=== PATIENT | male | born 1970 | race Caucasian/White ===

== ENCOUNTER 2018-01-01 12:58 | Inpatient (IN) | payer MEDICARE, MEDICAID ==
[~2018-01-01] VITALS: Ht 177.8 cm; Wt 65.3 kg
[2018-01-01] MEDS ORDERED: POLY17PO4 PO (13:14)
[2018-01-01] MEDS ORDERED: MEGE40TA PO (13:14)
[2018-01-01] MEDS ORDERED: TRAZ-182 PO (13:14)
[2018-01-01] MEDS ORDERED: ACET325C5 PO (13:14)
[2018-01-01] MEDS ORDERED: MAGN400O6 PO (13:14)
[2018-01-01] MEDS ORDERED: DOCU-141 PO (13:14)
[2018-01-01] MEDS ORDERED: LEVO1CAP PO (13:14)
[2018-01-01] MEDS ORDERED: DIATR MEGLU/DIATRIZOATE SODIUM 120 ML BOTTLE ONE ×2 (13:27→13:42)
[2018-01-01] MEDS ORDERED: DIATR MEGLU/DIATRIZOATE SODIUM 120 ML BOTTLE PO ONE (13:30)
--- NOTE | 2018-01-01 13:42 | NUR ---
1317- Rubber Compounder Supervisor assumes care. G tube was inserted by Dr Dean, pending x-ray for confirmation
--- NOTE | 2018-01-01 13:53 | NUR ---
ABDOMEN XRAY GASTROGRAFIN STUDY TO CHECK G-TUBE PLACEMENT GASTROGRAFIN 120ML X2 SCARIFIER OPERATOR XRAY ACQUIRED 30ML INJECTED @13:28 WHILE LEAVING REQUESTED ADDITIONAL 60ML 60ML INJECTED @13:42
[2018-01-01] MEDS ORDERED: IV NORMAL SALINE 1000 ML BAG IV ONE (14:15)
[2018-01-01] MEDS ORDERED: ONDANSETRON 4 MG/2 ML VIAL IV PRN (14:30)
[2018-01-01] MEDS ORDERED: Z GUARD REMEDY PASTE 57 GM TUBE TOP PRN (14:30)
[2018-01-01] MEDS ORDERED: ACETAMINOPHEN 325 MG TABLET PO PRN (14:30)
[2018-01-01] MEDS ORDERED: HYDROCODONE/APAP 5-325MG TABLET PO PRN (14:30)
[2018-01-01] MEDS ORDERED: MAGNESIUM HYDROXIDE 30 ML LIQUID UDC PO PRN (14:30)
[2018-01-01 14:33] LABS: BASOPHILS % (AUTO) 0.2 % (0.0-2.0); EOSINOPHILS # (AUTO) 0.2 K/uL (0.0-0.7); EOSINOPHILS % (AUTO) 1.3 % (0.0-7.0); HEMATOCRIT 43.3 % (36.7-47.1); HEMOGLOBIN 14.3 g/dL (12.5-16.3); LYMPHOCYTES # (AUTO) 1.3 K/uL (20.0-40.0); LYMPHOCYTES % (AUTO) 10.5 % (20.5-51.5); MEAN CORPUSCULAR HEMOGLOBIN 29.3 uug (23.8-33.4); MEAN CORPUSCULAR HGB CONC 33 g/dL (32.5-36.3); MEAN CORPUSCULAR VOLUME 88.9 fL (73.0-96.2); MONOCYTES # (AUTO) 0.5 K/uL (2.0-10.0); MONOCYTES % (AUTO) 4.1 % (0.0-11.0); NEUTROPHILS # (AUTO) 10.1 K/uL (1.8-8.9); NEUTROPHILS % (AUTO) 83.9 % (38.5-71.5); PLATELET COUNT (AUTO) 153 K/uL (152-348); RED BLOOD CELL COUNT(AUTO) 4.87 MIL/uL (4.06-5.63); WHITE BLOOD COUNT (AUTO) 12.1 K/uL (3.6-10.2)
[2018-01-01 14:41] LABS: CREATININE 0.8 mg/dL (0.6-1.3)
[2018-01-01 14:46] LABS: BILIRUBIN,DIRECT 0.1 mg/dL (0.0-0.2); BILIRUBIN,TOTAL 0.5 mg/dL (0.2-1.0); TOTAL PROTEIN, SERUM 7.7 g/dL (6.4-8.2)
--- NOTE | 2018-01-01 14:48 | NUR ---
RECEIVED PATIENT FROM ER VIA [facility], ADMITTED TO ROOM 219. IN STABLE CONDITION WITH IV ACCESS ON THE LEFT AC # 18 INTACT AND PATENT. PATIENT IS AWAKE, APHASIC, AAOX1. ADMISSION ORDERS NOTED AND CARRIED OUT. NURSING ADMISSION ASSESSMENTS TO BE COMPLETED. COMFORT MEASURES PROVIDED.
[2018-01-01 15:07] VITALS: BP 100/63
--- NOTE | 2018-01-01 16:14 | NUR ---
WAS ABLE TO OBTAIN SOME HISTORY FROM [facility] BUT CALLED AND LEFT MESSAGE FOR CONSERVATOR AASHISH GIGI [phone], TO OBTAIN MORE INFORMATION AND COPIES OF ADVANCED DIRECTIVES.
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
--- NOTE | 2018-01-01 17:06 | NUR ---
CALLED [facility], SPOKE TO LAM, ASKED IF THEY COULD FAX OVER CONSERVATORSHIP PAPER WORK.
[2018-01-01] MEDS: IV D5 1/2 NS 1000 ML 1,000 ML IV PRN (17:58)
--- NOTE | 2018-01-01 18:42 | NUR ---
Patient in bed, asleep. in stable condition. IVF infusing well on the left AC # 18. Patient kept clean and comfortable. All needs attended and anticipated. Will continue to monitor closely. wILL ENDORSE TO NEXT SHIFT ACCORDINGLY
--- NOTE | 2018-01-01 19:20 | NUR ---
RECEIVED PT LYING IN BED. AWAKE, BUT NON-VERBAL, ABLE TO MAKE BRIEF EYE CONTACT WHEN SPOKEN TO. IN NO ACUTE DISTRESS. IV SITE ON LEFT AC INTACT AND PATENT. IVF INFUSING. SAFETY MEASURE INITIATED.
[2018-01-01 20:29] VITALS: BP 132/50
--- NOTE | 2018-01-02 01:10 | NUR ---
PT IV KEEPS ON GETTING OCCLUDED PT BENDS HIS ELBOW MOST OF THE TIME. STARTED NEW IV SITE ON LEFT HAND #[address] IV FLUIDS TO RUN ON IV SITE ON LEFT HAND.
[2018-01-02 04:36] VITALS: BP 124/72
[2018-01-02] MEDS: IV D5 1/2 NS 1000 ML 1,000 ML IV PRN ×2 (06:03→21:58)
--- NOTE | 2018-01-02 06:05 | NUR ---
PATIENT ALERT BUT NON-VERBAL, ABLE TO MAKE BRIEF EYE CONTACT WHEN SPOKEN TO. IN NO ACUTE DISTRESS. NO S/SX OF PAIN OR DISCOMFORT NOTED. VS WNL. IV SITE ON LEFT AC AND LEFT HAND REMAINS INTACT AND PATENT. IVF INFUSING. SAFETY MEASURE MAINTAINED CALL ALVAREZ WITHIN REACH.
[2018-01-02 07:25] LABS: BASOPHILS % (AUTO) 0.1 % (0.0-2.0); CREATININE 0.9 mg/dL (0.6-1.3); EOSINOPHILS # (AUTO) 0.1 K/uL (0.0-0.7); EOSINOPHILS % (AUTO) 0.7 % (0.0-7.0); HEMATOCRIT 40.4 % (36.7-47.1); HEMOGLOBIN 13.6 g/dL (12.5-16.3); LYMPHOCYTES # (AUTO) 1.4 K/uL (20.0-40.0); LYMPHOCYTES % (AUTO) 12.9 % (20.5-51.5); MAGNESIUM 2.3 mg/dL (1.8-2.4); MEAN CORPUSCULAR HGB CONC 34 g/dL (32.5-36.3); MEAN CORPUSCULAR VOLUME 88.8 fL (73.0-96.2); MONOCYTES # (AUTO) 0.8 K/uL (2.0-10.0); MONOCYTES % (AUTO) 7.6 % (0.0-11.0); NEUTROPHILS # (AUTO) 8.3 K/uL (1.8-8.9); NEUTROPHILS % (AUTO) 78.7 % (38.5-71.5); PHOSPHOROUS 4.1 mg/dL (2.5-4.9); PLATELET COUNT (AUTO) 174 K/uL (152-348); POTASSIUM 3.6 mmol/L (3.5-5.1); RED BLOOD CELL COUNT(AUTO) 4.55 MIL/uL (4.06-5.63); WHITE BLOOD COUNT (AUTO) 10.6 K/uL (3.6-10.2)
[2018-01-02 11:25] VITALS: BP 119/78
--- NOTE | 2018-01-02 12:31 | NUR ---
Consent received from pt's LPS/conservator AASHISH TADEO [phone] and with EGD with PEG. Pt kept NPO since admission. Call light is within reach.
[2018-01-02] MEDS ORDERED: PROPOFOL 200 MG/20 ML BOTTLE IV ONE (13:31)
[2018-01-02] MEDS ORDERED: LIDOCAINE HCL 1% 20 ML VIAL MC ONE (13:31)
[2018-01-02] MEDS ORDERED: IV NORMAL SALINE 1000 ML BAG IV ONE (13:31)
[2018-01-02] MEDS ORDERED: IV LACTATED RINGERS SOLUTION 1,000 ML BAG IV ONE (13:33)
[2018-01-02] MEDS ORDERED: CLINDAMYCIN PHOSPHATE 600 MG/4 ML VIAL ONE (13:53)
[2018-01-02] MEDS ORDERED: ALBUTEROL SULFATE 2.5 MG/3 ML NEBU ONE (14:37)
--- NOTE | 2018-01-02 16:00 | NUR ---
Pt received back from PACU. 02 [facility] with sat of 97%. Call light is within reach.
[2018-01-02 16:06] VITALS: BP 127/97
--- NOTE | 2018-01-02 17:50 | NUR ---
Pt is in no acute distress. Call light is within reach. Pt's g-tube no bleeding noted. Abdominal binder in placed to prevent pt from pulling g-tube. Pt has been cooperative.
--- NOTE | 2018-01-02 20:25 | NUR ---
Received patient lying in bed comfortably. Patient is following simple commands and requests. Abdominal binder in place. IV site patent and infusing well. No respiratory distress noted. Bed in lowest position with 2/4 siderais up for safet Addendum: 01/02/18 at 2030 by NIRMAL WHITEHEAD RN Received patient lying in bed comfortably. Patient is following simple commands and requests. Abdominal binder in place. IV site patent and infusing well. No respiratory distress noted. Bed in lowest position with 2/4 siderais up for safety. Call light within reach. Bed alarm active. Will continue to monitor.
--- NOTE | 2018-01-03 04:14 | NUR ---
G-Tube Feeding started as ordered. Started feeding rate at 20cc/hr. Will endorse to oncoming nurse to advance 10cc/hr q6 hours as tolerated until goal of 65cc/hr is met per MD order. Will continue to monitor closely
[2018-01-03] MEDS: JEVITY 1.2 1000 ML LIQUID GT PRN (04:21)
[2018-01-03 05:00] VITALS: BP 107/76
[2018-01-03] MEDS: PANTOPRAZOLE SODIUM 40 MG VIAL IV SCH (07:33)
[2018-01-03 08:00] VITALS: BP 125/88
--- NOTE | 2018-01-03 08:00 | NUR ---
Pt suction white foamy sputum. 02 tapered to 2 lit/min via nasal canula. Pt more comfortable after suctioning and oral care done. HOB elevated prevent aspiration. G-tube audible on stomach. G tube feeding infusing at 20cc/hr no residual. Dressing changed on G-tube site no redness. Bed alarm on. Call light is within reach.
[2018-01-03 12:09] VITALS: BP 118/74
[2018-01-03] MEDS: IV D5 1/2 NS 1000 ML 1,000 ML IV PRN (13:06)
[2018-01-03 15:59] VITALS: BP 120/60
--- NOTE | 2018-01-03 18:19 | NUR ---
Pt was suctioned throughout the day. Pt is in no acute distress. Call light is within reach.
[2018-01-03 20:00] VITALS: BP 122/83
--- NOTE | 2018-01-03 20:00 | NUR ---
RECEIVED PATIENT AWAKE IN BED. PATIENT IS ALERT TO SELF ONLY. APHASIC. NO S/S OF PAIN OR DISCOMFORT. O2 2L NC SATING 95-96%. NO S/S OF PAIN OR DISCOMFORT. NO FACIAL GRIMACE NOTED. G-TUBE FEEDING INFUSING AT 40cc/hr. PATIENT IS TOLERATING FEEDING WELL. NO RESIDUAL NOTED. IVF INFUSING WELL TO LEFT HAND. BED ALARM ON. CALL LIGHT IN REACH. ALL NEEDS ATTENDED. WILL CONTINUE TO MONITOR.
--- NOTE | 2018-01-03 22:00 | NUR ---
PATIENT SUCTIONED AND REPOSITIONED TO SIDE FOR PRESSURE RELIEF. CALL LIGHT IN REACH. ALL NEEDS ATTENDED. WILL CONTINUE TO MONITOR.
[2018-01-03] MEDS: LORAZEPAM 2 MG/1 ML VIAL IV PRN (22:46)
--- NOTE | 2018-01-04 | NUR ---
PATIENT TOLERATING G-TUBE FEEDING. INCREASED TO 50cc/hr ORDERED. HOB ELEVATED. ON ASPIRATION PRECAUTIONS. CALL LIGHT IN REACH. ALL NEEDS ATTENDED. WILL CONTINUE TO MONITOR AND ASSESS.
[2018-01-04 04:34] VITALS: BP 109/79
[2018-01-04] MEDS: IV D5 1/2 NS 1000 ML 1,000 ML IV PRN (05:51)
[2018-01-04] MEDS: PANTOPRAZOLE SODIUM 40 MG VIAL IV SCH (06:03)
--- NOTE | 2018-01-04 06:15 | NUR ---
PATIENT ASLEEP IN BED. TOLERATING G-TUBE FEEDING AT 60cc/hr. IVF INFUSING. NO S/S OF PAIN OR DISCOMFORT. NO RESP. DISTRESS NOTED. VS WNL. SLEPT WELL THROUGHOUT THE NIGHT. REPOSITIONED TO SIDE. CALL LIGHT IN REACH. ALL NEEDS ATTENDED, WILL CONTINUE TO MONITOR AND ASSESS.
--- NOTE | 2018-01-04 08:00 | NUR ---
Pt is in no acute distress. Pt suctioned and repositioned for comfort. G-tube site intact and no redness noted. Pt tolerating 60cc/hr [id number]. Call light is within reach.
[2018-01-04 11:09] VITALS: BP 105/70
[2018-01-04 15:49] VITALS: BP 107/74
[2018-01-04 17:05] LABS: *BILIRUBIN,URIN NEGATIVE (NEGATIVE); *BLOOD, URINE NEGATIVE (NEGATIVE); *CLARITY,URINE CLEAR (CLEAR); *COLOR,URINE YELLOW (YELLOW); *KETONES,URINE NEGATIVE (NEGATIVE); *PROTEIN,URINE NEGATIVE (NEGATIVE); LEUKOCYTE ESTERASE ,URINE NEGATIVE (NEGATIVE); NITRITE, URINE NEGATIVE (NEGATIVE); PH,URINE 6.5 (5.0-8.0); UGLUCOSE NEGATIVE (NEGATIVE)
[2018-01-04 17:40] LABS: SQUAMOUS EPITHELIAL CELL,UR FEW /HPF (NONE SEEN)
[2018-01-04 17:41] LABS: MUCUS,URINE MANY /LPF (0-FEW); WBC,URINE 0-3 /HPF (0-3)
--- NOTE | 2018-01-04 18:00 | NUR ---
Pt tolerating goal rate of 65cc/hr no residual noted. Pt suctioned throughout shift. Call light is within reach. Pt gave MOM for constipation No result noted will notify on coming nurse. UA sent as ordered.
--- NOTE | 2018-01-04 20:00 | NUR ---
GT feeding observed to be running at 65 cc/hr, no residual noted, patent and flushing well via gravity. Observed to have congestion and suctioned as needed. HOB elevated. Safe environment provided at all times. Will continue to monitor closely.
[2018-01-04 20:14] VITALS: BP 142/97
[2018-01-04] MEDS: LORAZEPAM 2 MG/1 ML VIAL IV PRN (21:48)
[2018-01-05 04:59] VITALS: BP 119/65
[2018-01-05] MEDS: PANTOPRAZOLE SODIUM 40 MG VIAL IV SCH (06:17)
--- NOTE | 2018-01-05 06:40 | NUR ---
Pt tolerating GT feeding, no residual noted. Suctioned as needed throughout shift. Frequent repositioning. Safe environment implemented at all times. Will endorse accordingly. Feeding off at 0600 and on at 0800.
--- NOTE | 2018-01-05 07:00 | NUR ---
Received patient laying comfortably in bed, no acute distress noted. Patient is non verbal, opens eyes to tactile stimuli. O2 on at 2LPM via NC, saturating at 96-98%. PEG tube in place with abdominal binder. Feeding on hold at this time. IV site on Left hand and Left FA intact. IV fluids running at 75 cc/hr. Will continue to monitor.
[2018-01-05 07:18] LABS: BASOPHILS % (AUTO) 0.3 % (0.0-2.0); EOSINOPHILS # (AUTO) 0.2 K/uL (0.0-0.7); EOSINOPHILS % (AUTO) 1.6 % (0.0-7.0); HEMATOCRIT 37.8 % (36.7-47.1); HEMOGLOBIN 12.8 g/dL (12.5-16.3); LYMPHOCYTES # (AUTO) 1.6 K/uL (20.0-40.0); LYMPHOCYTES % (AUTO) 15.5 % (20.5-51.5); MEAN CORPUSCULAR HEMOGLOBIN 29.8 uug (23.8-33.4); MEAN CORPUSCULAR HGB CONC 34 g/dL (32.5-36.3); MEAN CORPUSCULAR VOLUME 88.1 fL (73.0-96.2); MONOCYTES # (AUTO) 0.8 K/uL (2.0-10.0); MONOCYTES % (AUTO) 7.2 % (0.0-11.0); NEUTROPHILS # (AUTO) 7.9 K/uL (1.8-8.9); NEUTROPHILS % (AUTO) 75.4 % (38.5-71.5); PLATELET COUNT (AUTO) 178 K/uL (152-348); RED BLOOD CELL COUNT(AUTO) 4.29 MIL/uL (4.06-5.63); WHITE BLOOD COUNT (AUTO) 10.5 K/uL (3.6-10.2)
[2018-01-05 07:27] LABS: CREATININE 0.8 mg/dL (0.6-1.3); POTASSIUM 3.6 mmol/L (3.5-5.1)
[2018-01-05] MEDS: JEVITY 1.2 1000 ML LIQUID GT PRN (08:15)
[2018-01-05] MEDS: IV D5 1/2 NS 1000 ML 1,000 ML IV PRN (10:17)
[2018-01-05 11:04] VITALS: BP 113/73
[2018-01-05 15:40] VITALS: BP 102/68
--- NOTE | 2018-01-05 18:13 | NUR ---
End of shift note: No acute change of condition noted. Patient awake, alert, non verbal. PEG tube feedings able to tolerate well. No residual noted. No abdominal distention, N/V noted. Turned and repositioned every 2 hours. HOB kept elevated. Suctioned as tolerated. O2 on at 2LPM via NC. IV site on LH and LFA intact. All needs attended and met. Will endorse accordingly
--- NOTE | 2018-01-05 19:20 | NUR ---
RECEIVED PT AWAKE ON BED. PT NONVERBAL. IV INTACT AND PATENT. PT SHOWS NO ACUTE DISTRESS. PT ON G-TUBE FEEDING. BED ALARM ON AND IN LOW POSITION, SIDE RAILS UPX2.WILL CONTINUE TO MONITOR.
[2018-01-05 20:00] VITALS: BP 133/83
[2018-01-06 04:23] VITALS: BP 129/51
--- NOTE | 2018-01-06 05:59 | NUR ---
ACCIDENTAL CHARTING OF INPUT AT ORAL FOR THE PT INSTEAD OF G-TUBE FEEDING. I PUT 195 FOR G-TUBE FEEDING .
[2018-01-06] MEDS: PANTOPRAZOLE SODIUM 40 MG VIAL IV SCH (06:03)
--- NOTE | 2018-01-06 06:05 | NUR ---
PT SLEPT INTERMITTENTLY. PT SHOWS NO ACUTE DISTRESS. PT ON PEG TUBE INTACT. PRESCRIBED MEDICATION GIVEN AND PT TOLERATED IT WELL. BED ALARM ON , LOW POSITION AND SIDE RAILS UPX2. SAFETY AND COMFORT PROVIDED. TURNED AND REPOSITIONED Q2H. PT HAD TWO BOWEL MOVEMENT ON MY SHIFT. PT CONTINUOUS GTUBE FEEDING WAS STOPPED AT 0300H BECAUSE PT JEVITY NOT AVAILABLE ON UNIT. ALL NEEDS ARE MET. WILL ENDORSE ACCORDINGLY.
[2018-01-06 06:56] LABS: BASOPHILS % (AUTO) 0.2 % (0.0-2.0); EOSINOPHILS # (AUTO) 0.2 K/uL (0.0-0.7); HEMATOCRIT 42.7 % (36.7-47.1); HEMOGLOBIN 14.4 g/dL (12.5-16.3); LYMPHOCYTES # (AUTO) 2.3 K/uL (20.0-40.0); LYMPHOCYTES % (AUTO) 27.4 % (20.5-51.5); MEAN CORPUSCULAR HGB CONC 34 g/dL (32.5-36.3); MEAN CORPUSCULAR VOLUME 88.7 fL (73.0-96.2); MONOCYTES # (AUTO) 0.5 K/uL (2.0-10.0); MONOCYTES % (AUTO) 6.6 % (0.0-11.0); NEUTROPHILS # (AUTO) 5.3 K/uL (1.8-8.9); NEUTROPHILS % (AUTO) 63.8 % (38.5-71.5); PLATELET COUNT (AUTO) 244 K/uL (152-348); RED BLOOD CELL COUNT(AUTO) 4.82 MIL/uL (4.06-5.63); WHITE BLOOD COUNT (AUTO) 8.2 K/uL (3.6-10.2)
--- NOTE | 2018-01-06 07:05 | NUR ---
Received patient in bed, awake, non verbal. PEG tube in place, feeding on hold. O2 on at 2LPM via NC, no s/s of distress noted, intermittent coughing noted. IV site on LAC intact. HOB elevated. Will continue to monitor
[2018-01-06 07:14] LABS: CREATININE 0.9 mg/dL (0.6-1.3); MAGNESIUM 2.5 mg/dL (1.8-2.4); PHOSPHOROUS 3.8 mg/dL (2.5-4.9); POTASSIUM 3.9 mmol/L (3.5-5.1)
[2018-01-06] MEDS: JEVITY 1.2 1000 ML LIQUID GT PRN (07:50)
[2018-01-06 11:20] VITALS: BP 112/80
[2018-01-06 15:18] VITALS: BP 123/79
--- NOTE | 2018-01-06 17:47 | NUR ---
End of shift note: Patient is awake, alert, non verbal. Opens eyes to tactile stimuli. Turned and repositioned every 2 hours. Kept clean and dry. PEG tube feeding running continuously at 65cc/hr, able to tolerate well. No abdominal distention, N/V or diarrhea noted. HOB kept elevated at all times. O2 on at 2LPM via NC. Suctioned as tolerated. Remained afebrile. All needs attended and met. Will continue to monitor.
--- NOTE | 2018-01-06 19:25 | NUR ---
RECEIVED MY PT AWAKE ON BED WITH NO ACUTE DISTRESS. IV INTACT AND PATENT. G-TUBE FEEDING ONGOING. PT ON 2L NASAL CANULA. CALL LIGHT WITHIN REACH, BED ALARM ON AND IN LOW POSITION AND SIDE RAILS UPX2.WILL CONTINUE TO MONITOR.
[2018-01-06 20:00] VITALS: BP 150/66
[2018-01-07] MEDS: JEVITY 1.2 1000 ML LIQUID GT PRN ×2 (00:41→18:43)
[2018-01-07 04:36] VITALS: BP 109/73
[2018-01-07] MEDS: PANTOPRAZOLE SODIUM 40 MG VIAL IV SCH (06:02)
--- NOTE | 2018-01-07 06:04 | NUR ---
PT SLEPT THROUGHOUT THE SHIFT. PT SHOWS NO ACUTE DISTRESS. PT ON PEG TUBE INTACT.PT TOLERATED IT WELL. PRESCRIBED MEDICATION GIVEN AND PT TOLERATED IT WELL. PT HAD ONE BOWEL MOVEMENT. BED ALARM ON , LOW POSITION AND SIDE RAILS UPX2. SAFETY AND COMFORT PROVIDED. TURNED AND REPOSITIONED Q2H. ALL NEEDS ARE MET. WILL ENDORSE ACCORDINGLY.
[2018-01-07 06:13] LABS: BASOPHILS % (AUTO) 0.4 % (0.0-2.0); EOSINOPHILS # (AUTO) 0.2 K/uL (0.0-0.7); EOSINOPHILS % (AUTO) 2.2 % (0.0-7.0); HEMATOCRIT 41.9 % (36.7-47.1); HEMOGLOBIN 14.4 g/dL (12.5-16.3); LYMPHOCYTES # (AUTO) 2.3 K/uL (20.0-40.0); LYMPHOCYTES % (AUTO) 29.2 % (20.5-51.5); MEAN CORPUSCULAR HGB CONC 34 g/dL (32.5-36.3); MEAN CORPUSCULAR VOLUME 87.3 fL (73.0-96.2); MONOCYTES # (AUTO) 0.7 K/uL (2.0-10.0); MONOCYTES % (AUTO) 8.9 % (0.0-11.0); NEUTROPHILS # (AUTO) 4.6 K/uL (1.8-8.9); NEUTROPHILS % (AUTO) 59.3 % (38.5-71.5); PLATELET COUNT (AUTO) 225 K/uL (152-348); WHITE BLOOD COUNT (AUTO) 7.8 K/uL (3.6-10.2)
[2018-01-07 06:25] LABS: CREATININE 0.9 mg/dL (0.6-1.3); MAGNESIUM 2.4 mg/dL (1.8-2.4); PHOSPHOROUS 3.7 mg/dL (2.5-4.9)
--- NOTE | 2018-01-07 07:30 | NUR ---
patient resting comfortably in bed at this time. bed alarm on, call light within reach, bed in locked/low position. bed bound. aphasic. stable condition, no s/s of distress at this time. will monitor g-tube for patency, and for any malfunctions.
--- NOTE | 2018-01-07 08:00 | NUR ---
FEEDING CONTINUED AT THIS TIME AT 65 CC/HR. PATIENT TOLERATING WELL.
[2018-01-07 11:30] VITALS: BP 117/78
[2018-01-07 15:42] VITALS: BP 108/74
--- NOTE | 2018-01-07 16:26 | NUR ---
G-TUBE FEEDING RUNNING AT THIS TIME AT 65 CC/HR. TOLERATING WELL. NO RESIDUAL. FLUSHING WELL. STABLE CONDITION, NO S/S OF DISTRESS. NO COUGH HEARD THROUGHOUT SHIFT. POSSIBLE DC TOMORROW BACK TO [facility]. PATIENT DOES NOT ATTEMPT TO GET OUT OF BED. BED ALARM ON, BED IN LOCKED/LOW POSITION, SIDE RAILS UP X2, CALL LIGHT WITHIN REACH. PATIENT TURNED/REPOSITIONED THROUGHOUT SHIFT. SKIN CARE PROVIDED. URINALYSIS SENT TO LAB.
[2018-01-07 18:44] LABS: *BILIRUBIN,URIN NEGATIVE (NEGATIVE); *BLOOD, URINE NEGATIVE (NEGATIVE); *COLOR,URINE YELLOW (YELLOW); *KETONES,URINE NEGATIVE (NEGATIVE); *PROTEIN,URINE NEGATIVE (NEGATIVE); LEUKOCYTE ESTERASE ,URINE TRACE (NEGATIVE); NITRITE, URINE NEGATIVE (NEGATIVE); UGLUCOSE NEGATIVE (NEGATIVE)
[2018-01-07 19:03] LABS: *CLARITY,URINE SLIGHTLY HAZY (CLEAR)
[2018-01-07 19:05] LABS: MUCUS,URINE MANY /LPF (0-FEW); URINE AMORPHOUS PHOSPHATES FEW /HPF
[2018-01-07 19:57] VITALS: BP 121/76
--- NOTE | 2018-01-07 20:00 | NUR ---
RECEIVED PATIENT AWAKE IN BED. ALERT TO SELF. APHASIC. G-TUBE FEEDING INFUSING AT 65cc/hr. PATIENT IS TOLERATING FEEDING WELL. VS WNL. NO S/S OF PAIN OR DISCOMFORT. NO RESP. DISTRESS NOTED. NO FACIAL GRIMACE NOTED. H/L INTACT AND PATENT. ON 2L NC SATING WELL. BED ALARM ON. CALL LIGHT IN REACH. ALL NEEDS ATTENDED. WILL CONTINUE TO MONITOR AND ASSESS.
[2018-01-08 04:33] VITALS: BP 110/59
[2018-01-08 05:55] LABS: BASOPHILS % (AUTO) 0.4 % (0.0-2.0); EOSINOPHILS # (AUTO) 0.2 K/uL (0.0-0.7); HEMATOCRIT 43.8 % (36.7-47.1); HEMOGLOBIN 14.7 g/dL (12.5-16.3); LYMPHOCYTES # (AUTO) 2.3 K/uL (20.0-40.0); LYMPHOCYTES % (AUTO) 23.1 % (20.5-51.5); MEAN CORPUSCULAR HEMOGLOBIN 29.6 uug (23.8-33.4); MEAN CORPUSCULAR HGB CONC 34 g/dL (32.5-36.3); MEAN CORPUSCULAR VOLUME 88.2 fL (73.0-96.2); MONOCYTES # (AUTO) 0.6 K/uL (2.0-10.0); MONOCYTES % (AUTO) 5.9 % (0.0-11.0); NEUTROPHILS # (AUTO) 6.9 K/uL (1.8-8.9); NEUTROPHILS % (AUTO) 68.6 % (38.5-71.5); PLATELET COUNT (AUTO) 276 K/uL (152-348); RED BLOOD CELL COUNT(AUTO) 4.96 MIL/uL (4.06-5.63)
[2018-01-08 06:05] LABS: CREATININE 0.9 mg/dL (0.6-1.3); MAGNESIUM 2.3 mg/dL (1.8-2.4); PHOSPHOROUS 3.8 mg/dL (2.5-4.9)
[2018-01-08] MEDS: PANTOPRAZOLE SODIUM 40 MG VIAL IV SCH (06:18)
--- NOTE | 2018-01-08 06:36 | NUR ---
PATIENT AWAKE IN BED. SLEPT WELL THROUGHOUT THE NIGHT. G-TUBE CLAMPED AT THIS TIME UNTIL 8AM. VSS. BED ALARM ON. HOB ELEVATED. ON ASPIRATION PRECAUTIONS. CALL LIGHT IN REACH. ALL NEEDS ATTENDED. WILL CONTINUE TO MONITOR.
--- NOTE | 2018-01-08 07:30 | NUR ---
RECEIVED IN BED WITH GT OFF ORDERED BUT NO REGURGITATION OR EMESIS AT THIS TIME AWAKE WITH GOOD EYE CONTACT BUT NON VERBAL ALL NEEDS ANTICIPATED AND SATISFIED.ON O2 AT 2L/M WITH NO SHORTNESS OF BREATH HOB IS UP MADE COMFORTABLE AND WILL CONTINUE TO OBSERVE .
[2018-01-08] MEDS ORDERED: IV NS 1000 ML 500 ML IV ONE (09:15)
--- NOTE | 2018-01-08 11:01 | NUR ---
D/C PLANNING AWAITING FOR ORDERS.
[2018-01-08 12:02] VITALS: BP 135/91
[2018-01-08] MEDS: JEVITY 1.2 1000 ML LIQUID GT PRN (12:28)
--- NOTE | 2018-01-08 12:30 | NUR ---
PATIENT SEEN AND EXAMINED BY DR BRADLEY WITH NO NEW ORDERS AT THIS TIME.
--- NOTE | 2018-01-08 15:59 | NUR ---
IBAN BARRERA CARBON PASTE MIXER OPERATOR HERE TO SEE PATIENT WITH NO NEW ORDERS AT THIS TIME.
--- NOTE | 2018-01-08 16:00 | NUR ---
CONFUSED DISORIENTED NEEDED CONSTANT FIXING IN HIS BED TAKES OUT PILLOWS THROWS THEM DOWN REMOVES ALL BED LINEN REPOSITIONED APHASIC ALL NEEDS ANTICIPATED AND SATISFIED.
[2018-01-08 16:12] VITALS: BP 130/86
[2018-01-08 16:57] LABS: CREATININE 0.8 mg/dL (0.6-1.3); POTASSIUM 4.2 mmol/L (3.5-5.1)
--- NOTE | 2018-01-08 17:58 | NUR ---
NO ORDERS NOTED FOR PATIENT TO BE DISCHARGED AT THIS TIME.
--- NOTE | 2018-01-08 18:50 | NUR ---
TOLERATED GT FEEDINGS ORDERED WITH NO REGURGITATION OR EMESIS AT THIS TIME.
[2018-01-08 20:12] VITALS: BP 110/81
[2018-01-09 04:00] VITALS: BP 104/81
[2018-01-09 06:31] LABS: BASOPHILS % (AUTO) 0.3 % (0.0-2.0); EOSINOPHILS # (AUTO) 0.2 K/uL (0.0-0.7); EOSINOPHILS % (AUTO) 2.1 % (0.0-7.0); HEMATOCRIT 42.7 % (36.7-47.1); HEMOGLOBIN 14.3 g/dL (12.5-16.3); LYMPHOCYTES # (AUTO) 2.3 K/uL (20.0-40.0); LYMPHOCYTES % (AUTO) 19.2 % (20.5-51.5); MEAN CORPUSCULAR HEMOGLOBIN 30.3 uug (23.8-33.4); MEAN CORPUSCULAR HGB CONC 34 g/dL (32.5-36.3); MEAN CORPUSCULAR VOLUME 90.4 fL (73.0-96.2); MONOCYTES # (AUTO) 0.8 K/uL (2.0-10.0); MONOCYTES % (AUTO) 6.9 % (0.0-11.0); NEUTROPHILS # (AUTO) 8.4 K/uL (1.8-8.9); NEUTROPHILS % (AUTO) 71.5 % (38.5-71.5); PLATELET COUNT (AUTO) 258 K/uL (152-348); RED BLOOD CELL COUNT(AUTO) 4.73 MIL/uL (4.06-5.63); WHITE BLOOD COUNT (AUTO) 11.7 K/uL (3.6-10.2)
[2018-01-09 06:43] LABS: CREATININE 0.8 mg/dL (0.6-1.3); MAGNESIUM 2.3 mg/dL (1.8-2.4); PHOSPHOROUS 3.7 mg/dL (2.5-4.9); POTASSIUM 4.1 mmol/L (3.5-5.1)
--- NOTE | 2018-01-09 06:58 | NUR ---
No s/s of acute distress noted at this time. GT ensured patent and flushing well via gravity. No residual noted. All needs met. Safe environment provided at all times.
[2018-01-09] MEDS ORDERED: PANTOPRAZOLE ORAL SUSPENSION 40 MG SUSPDR.PKT GT SCH (07:00)
--- NOTE | 2018-01-09 07:30 | NUR ---
AWAKE ON ROUNDS MAKES GOOD EYE CONTACT BUT NON VERBAL AND NO FACIAL EXPRESSION HAS FLAT EFFECT ALL NEEDS ANTICIPATED AND SATISFIED MAX ASSIST FOR ALL ADL TURNED AND REPOSITIONED Q2H FOR COMFORT GT STOPPED AT THIS TIME WILL RESUME IN 2 HOURS PER THE 20 HOURS SCHEDULE.TOLERATING WITH NO REGURGITATION OR EMESIS GASTRIC RESIDUAL 5ML MADE COMFORTABLE AND WILL CONTINUE TO OBSERVE.
[2018-01-09] MEDS ORDERED: IV NS 1000 ML 1,000 ML IV ONE ×2 (09:15)
[2018-01-09] MEDS ORDERED: SULFAMETH/TRIMETH 800/160 MG TABLET PO SCH (09:15)
[2018-01-09] MEDS: JEVITY 1.2 1000 ML LIQUID GT PRN (09:18)
--- NOTE | 2018-01-09 09:46 | NUR ---
PATIENT SEEN BY NEVAEH WITH NEW ORDERS HAS DUPLICATE ORDERS ON THE IVF PATIENT IS ALREADY RECEIVING THE NORMAL SALINE AT 250 ML/HR NOW SHE HAS ANOTHER ORDER FOR NS AT 100 ML/HR WILL CLARIFY THE ORDERS WITH HER.
--- NOTE | 2018-01-09 09:50 | NUR ---
STARTED ON GT ANTIBIOTICS ORDERED AND WILL OBSERVE FOR ANY ADVERSE REACTIONS.
[2018-01-09 11:34] VITALS: BP 102/73
--- NOTE | 2018-01-09 11:38 | NUR ---
PER THE DISCHARGE ADMINISTRATIVE PERSONAL ASSISTANT KELLY [facility]IRADO [facility] HAS A BED AVAILABLE FOR THE PATIENT TODAY AWAITING FOR DISCHARGE ORDERS AND PAPERWORK TO BE COMPLETED BY NEVAEH DEGROOT
[2018-01-09] MEDS ORDERED: LACT-209 GT (12:17)
[2018-01-09] MEDS ORDERED: SULF1TAB3 PO (12:17)
--- NOTE | 2018-01-09 13:00 | NUR ---
DISCHARGE ORDERS NOTED CALLED THE [facility] SPOKE WITH CASEY AND REPORT GIVEN TO HER FOR CONTINUING CARE OF THIS PATIENT.PATIENT WILL CONTINUE ON BACTRIM DS FOR 6 MORE DAYS AND ALSO CONTINUE ON IVF PATIENT ALREADY RECEIVED ONE LITER OF NORMAL SALINE BOLUS FOR BUN OF 19 TODAY PER NEVAEH DEGROOT AND SHE EXPRESSED UNDERSTANDING.
--- NOTE | 2018-01-09 14:00 | NUR ---
CALLED THE PATIENTS CONSERVATOR AASHISHMinda PIEDRA AND MESSAGE LEFT ON HIS VOICE MAIL THAT PATIENT IS DISCHARGED AND WILL BE TRANSFERED BACK TO [facility] TODAY.
[2018-01-09 15:01] VITALS: BP 104/72
--- NOTE | 2018-01-09 15:05 | NUR ---
PATIENT DISCHARGED PICKED UP THE AMBULANCE IN SATISFACTORY CONDITION TO THE [facility] WITH DISCHARGE INSTRUCTIONS PATIENT HAS NO PERSONAL BELONGINGS.GT IS INTACT HEPLOCK LEFT IN PLACE AND CASEY WAS AWARE WHEN I GAVE HER REPORT.
== END 2018-01-09 15:05 | DRG 393 ==
LOC: ER 12:59 → MED 14:39
PROVIDERS: ADMIT Internal Medicine; ATTEND Internal Medicine
PROC: 0DH63UZ Insertion of Feeding Device into Stomach, Percutaneous Approach (ICD-10-PCS; principal; 2018-01-01)
DX: K94.23 Gastrostomy malfunction (principal); G93.40 Encephalopathy, unspecified; J18.9 Pneumonia, unspecified organism; G10 Huntington's disease; K56.7 Ileus, unspecified; N39.0 Urinary tract infection, site not specified; F02.80 Dementia in other diseases classified elsewhere, unspecified severity, without behavioral disturbance, psychotic disturbance, mood disturbance, and anxiety; R13.10 Dysphagia, unspecified; Z88.1 Allergy status to other antibiotic agents; Z88.0 Allergy status to penicillin; N18.9 Chronic kidney disease, unspecified; E86.0 Dehydration
CPT/HCPCS: 36415; 49440; 70030-TC; 71045; 74018; 83605; 83735; 84100; 85025; 85730; 87040; 87070; 87077; 87086; 93005; 94664; A4217; A4663; C1758; C9113; J2060; J3490; J7030; J7040; J7120; Q9963